=== PATIENT | female | born 1990 | race Caucasian/White ===

== ENCOUNTER 2017-05-14 20:14 | Emergency (ER) | payer OTHER ==
[~2017-05-14] VITALS: Ht 160 cm; Wt 54.7 kg
[2017-05-14] MEDS ORDERED: NORCO 5/3251 TABLET PO (22:19)
[2017-05-14 22:33] VITALS: BP 127/86
== END 2017-05-14 22:34 | disposition home or self-care (01) ==
LOC: EME 20:14
DX: M54.31 Sciatica, right side (principal); J45.909 Unspecified asthma, uncomplicated; F17.200 Nicotine dependence, unspecified, uncomplicated; Z88.5 Allergy status to narcotic agent
CPT/HCPCS: 99281; 99283; J1100

== ENCOUNTER 2017-05-20 19:48 | Emergency (ER) | payer OTHER ==
[~2017-05-20] VITALS: Ht 160 cm; Wt 52.6 kg
[~2017-05-20 19:48] MED LIST: NORCO 5/3251 TABLET PO
[2017-05-20 20:00] VITALS: BP 127/75
== END 2017-05-20 22:34 | disposition home or self-care (01) ==
LOC: EME 19:48
DX: S63.613A Unspecified sprain of left middle finger, initial encounter (principal); Y04.0XXA Assault by unarmed brawl or fight, initial encounter; S39.012A Strain of muscle, fascia and tendon of lower back, initial encounter; F17.200 Nicotine dependence, unspecified, uncomplicated
CPT/HCPCS: 73130; 99281; 99283

== ENCOUNTER 2017-06-23 14:40 | Emergency (ER) | payer OTHER ==
[~2017-06-23] VITALS: Ht 157.5 cm; Wt 52.7 kg
[2017-06-23] MEDS ORDERED: ULTRAM50 MG PO (17:03)
[2017-06-23] MEDS ORDERED: MEDROL DOSEPAK4 MG PO (17:03)
[2017-06-23] MEDS ORDERED: FLEXERIL10 MG PO (17:03)
[2017-06-23] MEDS ORDERED: LIDODERM 5% P1 PATCH TD (17:03)
[2017-06-23 17:15] LABS: ADD MIUA? YES; BILIRUBIN NEGATIVE; BLOOD SMALL; COLOR YELLOW ((YELLOW)); GLUCOSE (STRIP) NEGATIVE; KETONES NEGATIVE; LEUKOCYTES NEGATIVE; NITRITE NEGATIVE; PROTEIN (STRIP) NEGATIVE; SPECIFIC GRAVITY 1.025 (1.000-1.030)
[2017-06-23 17:18] LABS: BACTERIA NONE SEEN /HPF; EPITHELIAL CELLS RARE /HPF; MUCUS TRACE /LPF; WHITE BLOOD CELLS 0-5 /HPF (0-5)
[2017-06-23 18:41] VITALS: BP 110/78
== END 2017-06-23 19:02 | disposition home or self-care (01) ==
LOC: EME 14:40
PROVIDERS: Nurse Practitioner Family
DX: M54.41 Lumbago with sciatica, right side (principal); J45.909 Unspecified asthma, uncomplicated; F17.210 Nicotine dependence, cigarettes, uncomplicated
CPT/HCPCS: 81003; 99281; 99283; J1885; J3010